=== PATIENT | female | born 1950 | race Hispanic/Latino ===

== ENCOUNTER → 2021-06-03 | Outpatient (CLI) | payer BC, MEDICARE | LOC: DX 09:23 | PROVIDERS: ATTEND Family Medicine | DX: R13.10 Dysphagia, unspecified (principal); I10 Essential (primary) hypertension; E11.9 Type 2 diabetes mellitus without complications; Z86.16 Personal history of COVID-19 | CPT/HCPCS: 74230 ==

== ENCOUNTER 2021-06-29 22:09 | Emergency (ER) | payer MEDICARE ==
[~2021-06-29] VITALS: Ht 154.9 cm; Wt 72.6 kg
== END 2021-06-29 23:40 ==
LOC: ER 22:14
DX: Z43.0 Encounter for attention to tracheostomy (principal); I10 Essential (primary) hypertension; E11.9 Type 2 diabetes mellitus without complications; D64.9 Anemia, unspecified; I69.391 Dysphagia following cerebral infarction; R13.10 Dysphagia, unspecified; Z86.16 Personal history of COVID-19
CPT/HCPCS: 99283

== ENCOUNTER 2021-07-10 08:19 | Inpatient (IN) | payer MEDICARE ==
[~2021-07-10] VITALS: Ht 165.1 cm; Wt 76.7 kg
[2021-07-10 08:58] LABS: BASOPHILS # (AUTO) 0.1 (0.0-0.1); BASOPHILS % 0.4 % (0.0-1.0); EOSINOPHILS # (AUTO) 0.5 (0.0-0.4); EOSINOPHILS % 4.2 % (0.0-6.0); HEMATOCRIT 39.3 % (34.2-44.1); HEMOGLOBIN 12.3 g/dL (12.0-16.0); LYMPHOCYTES # (AUTO) 3.4 (1.0-3.2); LYMPHOCYTES % 26.5 % (18.0-39.1); MEAN CORPUSCULAR HEMOGLOBIN 29.6 pg (28-32); MEAN CORPUSCULAR HGB CONC 31.3 g/dL (31-35); MEAN CORPUSCULAR VOLUME 94.7 fL (81-99); MONOCYTES # (AUTO) 0.8 (0.2-0.8); MONOCYTES % 6.5 % (4.4-11.3); NEUTROPHILS # (AUTO) 7.9 (2.1-6.9); PLATELET COUNT 269 x10e3/uL (140-360); RED BLOOD COUNT 4.15 x10e6/uL (3.6-5.1); RED CELL DISTRIBUTION WIDTH 15.1 % (11.7-14.4)
[2021-07-10 09:25] LABS: CALCIUM 10.2 mg/dL (8.4-10.2); CREATININE, SERUM 0.55 mg/dL (0.57-1.11)
[2021-07-10] MEDS: SODIUM CHLORIDE 0.9% 1000ML 1,000 ML IV SCH ×3 (10:14→20:38)
[2021-07-10] MEDS ORDERED: ALBUTEROL/IPRATROPIUM 3 ML NEB NEB ONE (11:30)
[2021-07-10 12:31] VITALS: BP 139/75
[2021-07-10 12:48] VITALS: BP 139/75
[2021-07-10 13:00] VITALS: BP 139/75
[2021-07-10] MEDS ORDERED: ALBUTEROL/IPRATROPIUM 3 ML NEB NEB SCH (13:00)
[2021-07-10] MEDS ORDERED: DEXTROSE 50% SYRINGE 50 ML IV PRN (13:30)
[2021-07-10] MEDS: ALBUTEROL/IPRATROPIUM 3 ML NEB NEB PRN (13:35)
[2021-07-10] MEDS ORDERED: TYLENOL325 M2 PO (13:52)
[2021-07-10] MEDS ORDERED: ATIVAN0.5 MG PO (13:52)
[2021-07-10] MEDS ORDERED: ALBUTEROL1.25 MG/3 NEB (13:52)
[2021-07-10] MEDS ORDERED: IPRATROPIU0.2 MG/1 M INH (13:52)
[2021-07-10] MEDS ORDERED: NEURONTIN300 MG PO (13:52)
[2021-07-10] MEDS ORDERED: METFORMIN HCL500 MG PO (13:52)
[2021-07-10] MEDS ORDERED: GLUCAGON EMERGEN1 M1 IM (13:52)
[2021-07-10] MEDS ORDERED: LISINOPRIL5 MG PO (13:52)
[2021-07-10] MEDS ORDERED: HYDROCODON-ACE1 EAC9 PO (13:52)
[2021-07-10] MEDS ORDERED: MULTIVITAMIN1 EACH PO (13:52)
[2021-07-10] MEDS ORDERED: MIRALAX17 GM PO (13:52)
[2021-07-10] MEDS ORDERED: ZOFRAN4 MG PO (13:52)
[2021-07-10] MEDS ORDERED: METOPROLOL TART25 MG PO (13:52)
[2021-07-10] MEDS ORDERED: NATURAL BALANCE OU (13:52)
[2021-07-10] MEDS ORDERED: EFFER-K 20 MEQ20 MEQ PO (13:52)
[2021-07-10] MEDS ORDERED: ULTRAM50 MG PO (13:52)
[2021-07-10] MEDS ORDERED: LANTUS 3ML100 UNITS/ SC (13:52)
[2021-07-10] MEDS ORDERED: ASCORBIC ACID500 M2 PO (13:52)
[2021-07-10] MEDS ORDERED: LOVENOX40 MG/0.4 SC (13:52)
[2021-07-10] MEDS ORDERED: SERTRALINE HCL100 MG PO (13:52)
[2021-07-10] MEDS ORDERED: ADMELOG100 UNIT/1 SC (13:52)
[2021-07-10] MEDS ORDERED: vitamin d PO (13:52)
[2021-07-10] MEDS ORDERED: FAMOTIDINE20 MG PO (13:52)
[2021-07-10] MEDS ORDERED: BUSPIRONE HCL5 MG PO (13:52)
[2021-07-10] MEDS ORDERED: PERIDEX473 M1 PO (13:52)
[2021-07-10] MEDS ORDERED: guaifenesin GT (13:52)
[2021-07-10] MEDS ORDERED: TRAMADOL HCL 50 MG TAB PO PRN (14:00)
[2021-07-10] MEDS ORDERED: POLYETHYLENE GLYCOL 3350 17 GM PACK PO PRN (14:00)
[2021-07-10] MEDS ORDERED: ACETAMINOPHEN 325 MG TAB PO PRN (14:00)
[2021-07-10] MEDS ORDERED: SODIUM CHLORIDE 0.9% 50ML 50 ML ONE (14:14)
[2021-07-10] MEDS ORDERED: IOPAMIDOL 370 MG/ML 200 ML INFUS..BTL INJ ONE (14:15)
[2021-07-10] MEDS: GABAPENTIN 300 MG CAP PO SCH ×2 (15:20→21:00)
[2021-07-10] MEDS: DEXAMETHASONE SOD PHOS 10 MG/1 ML VIAL IV SCH ×2 (15:20→21:00)
[2021-07-10] MEDS: INSULIN REGULAR, HUMAN 100 UNIT/1 ML SQ SCH ×2 (17:29→21:00)
[2021-07-10] MEDS: ENOXAPARIN SOD INJ 40 MG/0.4 ML SYR SC SCH (17:34)
[2021-07-10] MEDS: FAMOTIDINE 20 MG TAB PO SCH (17:34)
[2021-07-10 19:38] VITALS: BP 122/79
[2021-07-10 20:00] VITALS: BP 122/79
[2021-07-10] MEDS: SERTRALINE HCL 100 MG TAB PO SCH (21:00)
[2021-07-10] MEDS ORDERED: DEXAMETHASONE SOD PHOS 10 MG/1 ML VIAL IV SCH (21:00)
[2021-07-10] MEDS: INSULIN GLARGINE 100 UNITS/ML VIAL SQ SCH (21:00)
[2021-07-10 22:00] VITALS: BP 106/67
[2021-07-11] VITALS (12 sets, daily range): BP systolic 113–152; BP diastolic 61–84
[2021-07-11] MEDS: SODIUM CHLORIDE 0.9% 1000ML 1,000 ML IV SCH (04:50)
[2021-07-11 05:48] LABS: BASOPHILS % 0.2 % (0.0-1.0); HEMATOCRIT 36.1 % (34.2-44.1); HEMOGLOBIN 11.2 g/dL (12.0-16.0); LYMPHOCYTES # (AUTO) 1.4 (1.0-3.2); LYMPHOCYTES % 23.1 % (18.0-39.1); MEAN CORPUSCULAR HEMOGLOBIN 29.7 pg (28-32); MEAN CORPUSCULAR VOLUME 95.8 fL (81-99); MONOCYTES # (AUTO) 0.1 (0.2-0.8); MONOCYTES % 1.5 % (4.4-11.3); NEUTROPHILS # (AUTO) 4.6 (2.1-6.9); NEUTROPHILS % 74.7 % (38.7-80.0); PLATELET COUNT 226 x10e3/uL (140-360); RED BLOOD COUNT 3.77 x10e6/uL (3.6-5.1); RED CELL DISTRIBUTION WIDTH 15.2 % (11.7-14.4)
[2021-07-11 06:34] LABS: CALCIUM 9.7 mg/dL (8.4-10.2); CREATININE, SERUM 0.51 mg/dL (0.57-1.11)
[2021-07-11] MEDS: INSULIN REGULAR, HUMAN 100 UNIT/1 ML SQ SCH ×4 (08:30→21:00)
[2021-07-11] MEDS: FAMOTIDINE 20 MG TAB PO SCH ×2 (09:30→17:18)
[2021-07-11] MEDS: DEXAMETHASONE SOD PHOS 10 MG/1 ML VIAL IV SCH (09:30)
[2021-07-11] MEDS: GABAPENTIN 100 MG CAP PO SCH ×3 (10:50→21:30)
[2021-07-11] MEDS: FLUCONAZOLE 200 MG/100 ML 100 ML IV SCH (12:05)
[2021-07-11] MEDS: HYDROCODONE/APAP 10MG-325MG TAB PO PRN (12:05)
[2021-07-11] MEDS: LORAZEPAM 1 MG TAB PO SCH ×2 (14:46→21:30)
[2021-07-11] MEDS: ENOXAPARIN SOD INJ 40 MG/0.4 ML SYR SC SCH (17:18)
[2021-07-11 17:41] LABS: CLARITY,URINE TURBID (CLEAR); COLOR,URINE YELLOW (YELLOW); KETONES,URINE NEGATIVE (NEGATIVE); LEUKOCYTE ESTERASE ,URINE LARGE (NEGATIVE); NITRITE,URINE NEGATIVE (NEGATIVE); PROTEIN,URINE DIPSTICK TRACE (NEGATIVE)
[2021-07-11 17:42] LABS: URINE UROBILINOGEN 1 mg/dL (0.2 - 1)
[2021-07-11 18:25] LABS: BACTERIA,URINE FEW /HPF; EPITHELIAL CELLS,URINE RARE /LPF; WBC,URINE (MAN) 21-50 /HPF (0-5)
[2021-07-11] MEDS: ALBUTEROL/IPRATROPIUM 3 ML NEB NEB PRN (20:20)
[2021-07-11] MEDS: INSULIN GLARGINE 100 UNITS/ML VIAL SQ SCH (21:00)
[2021-07-11] MEDS: SERTRALINE HCL 100 MG TAB PO SCH (21:30)
[2021-07-11] MEDS: ZOLPIDEM TARTRATE 5 MG TAB PO PRN (21:30)
[2021-07-12] VITALS (7 sets, daily range): BP systolic 128–146; BP diastolic 66–106
[2021-07-12] MEDS: INSULIN REGULAR, HUMAN 100 UNIT/1 ML SQ SCH ×4 (07:30→21:00)
[2021-07-12] MEDS: LORAZEPAM 1 MG TAB PO SCH ×3 (09:18→21:25)
[2021-07-12] MEDS: FAMOTIDINE 20 MG TAB PO SCH ×2 (09:18→17:34)
[2021-07-12] MEDS: GABAPENTIN 100 MG CAP PO SCH ×3 (09:20→21:25)
[2021-07-12] MEDS: FLUCONAZOLE 200 MG/100 ML 100 ML IV SCH (11:47)
[2021-07-12] MEDS: ENOXAPARIN SOD INJ 40 MG/0.4 ML SYR SC SCH (17:34)
[2021-07-12] MEDS: INSULIN GLARGINE 100 UNITS/ML VIAL SQ SCH (21:00)
[2021-07-12] MEDS: SERTRALINE HCL 100 MG TAB PO SCH (21:25)
[2021-07-12] MEDS: ZOLPIDEM TARTRATE 5 MG TAB PO PRN (21:26)
[2021-07-12] MEDS: HYDROCODONE/APAP 10MG-325MG TAB PO PRN (21:26)
[2021-07-13] VITALS (9 sets, daily range): BP systolic 138–153; BP diastolic 77–95
[2021-07-13] MEDS: INSULIN REGULAR, HUMAN 100 UNIT/1 ML SQ SCH ×4 (07:30→21:10)
[2021-07-13] MEDS: LORAZEPAM 1 MG TAB PO SCH ×3 (09:42→21:10)
[2021-07-13] MEDS: GABAPENTIN 100 MG CAP PO SCH ×3 (09:42→21:10)
[2021-07-13] MEDS: FAMOTIDINE 20 MG TAB PO SCH ×2 (09:42→17:12)
[2021-07-13] MEDS ORDERED: FLUCONAZOLE 100 MG TAB PO SCH (11:30)
[2021-07-13] MEDS: ENOXAPARIN SOD INJ 40 MG/0.4 ML SYR SC SCH (17:12)
[2021-07-13] MEDS: INSULIN GLARGINE 100 UNITS/ML VIAL SQ SCH (21:10)
[2021-07-13] MEDS: SERTRALINE HCL 100 MG TAB PO SCH (21:10)
[2021-07-14] VITALS: BP 150/83
[2021-07-14 04:00] VITALS: BP 160/89
[2021-07-14] MEDS: INSULIN REGULAR, HUMAN 100 UNIT/1 ML SQ SCH ×2 (07:30→12:09)
[2021-07-14] MEDS: LORAZEPAM 1 MG TAB PO SCH (08:12)
[2021-07-14] MEDS: FAMOTIDINE 20 MG TAB PO SCH (08:12)
[2021-07-14] MEDS: GABAPENTIN 100 MG CAP PO SCH (08:13)
[2021-07-14 08:16] VITALS: BP 160/89
[2021-07-14 08:22] VITALS: BP 160/89
[2021-07-14 08:23] VITALS: BP 149/90
[2021-07-14 11:53] VITALS: BP 145/88
== END 2021-07-14 14:19 | disposition home health service (06) | DRG 205 ==
LOC: ER 08:30 → ERHOLD 09:10 → MED/SURG3 12:03 → IMCU 15:14 → MED/SURG 07-11 20:16 → OBSVTOIN 07-12 10:50
PROC: 0BP1XFZ Removal of Tracheostomy Device from Trachea, External Approach (ICD-10-PCS; principal; 2021-07-12)
DX: J95.03 Malfunction of tracheostomy stoma (principal); L89.154 Pressure ulcer of sacral region, stage 4; B37.49 Other urogenital candidiasis; I10 Essential (primary) hypertension; E11.9 Type 2 diabetes mellitus without complications; D64.9 Anemia, unspecified; Z88.5 Allergy status to narcotic agent; Z86.16 Personal history of COVID-19; Z20.822 Contact with and (suspected) exposure to COVID-19; Z79.4 Long term (current) use of insulin
CPT/HCPCS: 36415; 70491; 71045; 80048; 81001; 82948; 85025; 87086; 93005; 94640; 94799; 96361; 97139; 99251; 99284; G0378; J1100; J1450; J1650; J1815; J1817; J7030; Q9967; U0002